=== PATIENT | female | born 1955 | race Caucasian/White ===

== ENCOUNTER 2017-02-01 18:59 | Emergency (ER) | payer OTHER ==
[~2017-02-01] VITALS: Ht 165.1 cm; Wt 40.8 kg
[~2017-02-01 18:59] MED LIST: ATIVAN0.5 MG ORAL; ATIVAN0.5 MG PO; ATIVAN1 MG ORAL; BENTYL10 MG PO; NORCO 5-325 TA1 EACH ORAL; OMEPRAZOLE40 M1 ORAL; PROTONIX40 MG PO; RANITIDINE HCL150 MG ORAL; TAGAMET400 MG ORAL; ZOFRAN ODT4 MG ORAL; ZOFRAN4 M3 ORAL
--- NOTE | 2017-02-01 19:42 | Emergency Room Report ---
History of Present Illness General Chief Complaint: Abdominal Pain Source: Patient Present Illness HPI Patient present with complaints of epigastric pain diffuse bilateral lower abdominal pain Patient reports multiple episodes of vomiting along with diarrhea she feels that she has lost a significant amount of weight over the past 2 months symptoms worsening over the past 2-3 days Pain is epigastric she states that it does not feel like her gastritis Lower abdomen is cramping Denies any recent travel denies any change in medications Allergies: Coded Allergies: PROCHLORPERAZINE EDISYLATE (Verified Allergy, Intermediate, Hives, 01/08/13 ) PROCHLORPERAZINE MALEATE (Verified Allergy, Intermediate, Hives, 01/08/13) PROCHLORPERAZINE (Unverified Allergy, Unknown, 11/04/14) CAFFEINE (Unverified Adverse Reaction, Intermediate, 04/19/14) TACHYCARDIA, PALPITATIONS OMEPRAZOLE (Unverified Adverse Reaction, Intermediate, HEADACHE, 02/01/17) ONDANSETRON (Unverified Adverse Reaction, Intermediate, HEADACHE, 02/01/17) NEUROMUSCULAR BLOCKERS, STEROIDAL (Unverified Adverse Reaction, Unknown, TACHYCARDIA AND PALPITATIONS, 02/01/17) Uncoded Allergies: STEROID (Adverse Reaction, Severe, TACHYCARDIA AND PALPITATIONS, 02/01/17) TACHYCARDIA, PALPITATIONS Patient History Past Medical History: see triage record Pertinent Family History: none Now: No Reviewed Nursing Documentation: PMH: Agreed, PSxH: Agreed Nursing Documentation-PMH Hx Cardiac Problems: No Hx Hypertension: No Hx Pacemaker: No Hx Asthma: No Hx COPD: No Hx Diabetes: No Hx Cancer: No Hx Dialysis: No Hx Neurological Problems: Yes - spinal stenosis,scoliosis Hx Cerebrovascular Accident: No Hx Seizures: No Review of Systems All Other Systems: negative except mentioned in HPI Physical Exam Vital Signs Date Time Temp Pulse Resp B/P Pulse Ox O2 Delivery O2 Flow Rate FiO2 02/01/17 19:13 98.1 88 16 116/60 98 Room Air Sp02 EP Interpretation: reviewed, normal General Appearance: cachetic Head: normocephalic, atraumatic Eyes: bilateral eye PERRL, bilateral eye EOMI ENT: hearing grossly normal, normal pharynx, TMs + canals normal, uvula midline , dry mucus membranes Neck: full range of motion, supple, no meningismus, no bony tend Respiratory: lungs clear, normal breath sounds, no rhonchi, no respiratory distress, no retraction, no accessory muscle use Cardiovascular #1: normal peripheral pulses, regular rate, rhythm, no edema, no gallop, no JVD, no murmur Gastrointestinal: normal bowel sounds, soft, no mass, no organomegaly, non- distended, no guarding, no hernia, no pulsatile mass, no rebound, tenderness - Epigastric bilateral lower abdomen no obvious rebound however Genitourinary: no CVA tenderness Musculoskeletal: normal inspection Neurologic: oriented x3, responsive, senior investment manager III-XII nml as tested, motor strength/ tone normal, sensory intact Psychiatric: mood/affect normal Skin: normal color, no rash, warm/dry, palpation normal Lymphatic: normal inspection, no adenopathy Medical Decision Making Diagnostic Impression: Primary Impression: Abdominal pain Additional Impression: Gastritis ER Course With the history exam and presentation, multiple differentials considered, including but not limited to appendicitis, gastritis, cholecystitis, diverticulitis Patient's blood work shows mild dehydration CT imaging is somewhat benign no obvious acute pathology Patient however continues to complain of discomfort nauseated as well With his significant weight loss and deterioration patient was at requested for admission secondary to insurance purposes patient was transferred Labs Test 02/01/17 19:43 White Blood Count 9.1 K/UL (4.8-10.8) Red Blood Count 3.34 M/UL (4.20-5.40) Hemoglobin 12.4 G/DL (12.0-16.0) Hematocrit 35.0 % (37.0-47.0) Mean Corpuscular Volume 105 FL (80-99) Mean Corpuscular Hemoglobin 37.2 PG (27.0-31.0) Mean Corpuscular Hemoglobin Concent 35.5 G/DL (32.0-36.0) Red Cell Distribution Width 11.9 % (11.6-14.8) Platelet Count 190 K/UL (150-450) Mean Platelet Volume 7.5 FL (6.5-10.1) Neutrophils (%) (Auto) 58.1 % (45.0-75.0) Lymphocytes (%) (Auto) 31.3 % (20.0-45.0) Monocytes (%) (Auto) 8.7 % (1.0-10.0) Eosinophils (%) (Auto) 1.1 % (0.0-3.0) Basophils (%) (Auto) 0.8 % (0.0-2.0) Urine Color Pale yellow Urine Appearance Clear Urine pH 5 (4.5-8.0) Urine Specific [place] 1.020 (1.005-1.035) Urine Protein Negative (NEGATIVE) Urine Glucose (UA) Negative (NEGATIVE) Urine Ketones Negative (NEGATIVE) Urine Occult Blood Negative (NEGATIVE) Urine Nitrite Negative (NEGATIVE) Urine Bilirubin Negative (NEGATIVE) Urine Urobilinogen 1 MG/DL (0.0-1.0) Urine Leukocyte Esterase 1+ (NEGATIVE) Urine RBC 0-2 /HPF (0 - 2) Urine WBC 2-4 /HPF (0 - 2) Urine Squamous Epithelial Cells Few /LPF (NONE/OCC) Urine Amorphous Sediment Few /LPF (NONE) Urine Bacteria Few /HPF (NONE) Sodium Level 143 mEQ/L (135-145) Potassium Level 4.6 mEQ/L (3.4-4.9) Chloride Level 105 mEQ/L (98-107) Carbon Dioxide Level 27 mEQ/L (20-30) Anion Gap 11 (5-15) Blood Urea Nitrogen 20 mg/dL (7-23) Creatinine 0.9 mg/dL (0.5-0.9) Estimat Glomerular Filtration Rate > 60 mL/min (>60) Glucose Level 95 mg/dL (74-106) Calcium Level 9.3 mg/dL (8.6-10.2) Total Bilirubin 0.2 mg/dL (0.0-1.2) Aspartate Amino Transf (AST/SGOT) 22 U/L (5-40) Alanine Aminotransferase (ALT/SGPT) 14 U/L (3-33) Alkaline Phosphatase 69 U/L (35-104) Total Creatine Kinase 142 U/L (26-140) Creatine Kinase MB 2.8 ng/mL (< 3.8) Creatine Kinase MB Relative Index 1.9 Troponin I < 0.30 ng/mL (<=0.30) Total Protein 6.3 g/dL (6.6-8.7) Albumin 4.4 g/dL (3.5-5.2) Globulin 1.9 g/dL Albumin/Globulin Ratio 2.3 (1.0-2.7) Lipase 13 U/L (< 60) Rhythm Strip Diag. Results EP Interpretation: yes Rate: 76 Rhythm: NSR, no PVC's, no ectopy Chest X-Ray Diagnostic Results Chest X-Ray Diagnostic Results : Chest X-Ray Ordered: Yes # of Views/Limited/Complete: 1 View Indication: Chest Pain EP Interpretation: Yes Interpretation: no consolidation, no effusion, no pneumothorax Impression: No acute disease Interpreting ER Provider: Benita Lopez, DO CT/MRI/US Diagnostic Results CT/MRI/US Diagnostic Results : Impression CT abdomen pelvisIMPRESSION: No evidence of acute abdominopelvic disease, with limitation as described. Subtle but potentially significant abnormalities the gastrointestinal tract may be missed. Repeat CT scan with full oral and IV contrast preparation recommended for more complete evaluation, as clinically indicated Probable small cyst left hepatic lobe Nonspecific low-attenuation in uterus. Pathology not excludable. Consider pelvic ultrasound for further evaluation as clinically indicated. This finding not described in preliminary report, minor discrepancy due to questionable nature finding. Degenerative spondylosis Last Vital Signs Date Time Temp Pulse Resp B/P Pulse Ox O2 Delivery O2 Flow Rate FiO2 02/01/17 19:13 98.1 88 16 116/60 98 Room Air Status: improved Disposition: XFER [facility] Condition: Serious BENITA LOPEZ D.O. Feb 01, 2017 19:42
[2017-02-01] MEDS ORDERED: Morphine Sulfate 4mg/ml Inj IVP ONE (19:45)
[2017-02-01] MEDS ORDERED: Famotidine 20 MG/ 2ML VIAL IVP ONE (19:45)
[2017-02-01 19:59] LABS: BASOPHILS % (AUTO) 0.8 % (0.0-2.0); EOSINOPHILS % (AUTO) 1.1 % (0.0-3.0); LYMPHOCYTES % (AUTO) 31.3 % (20.0-45.0); MEAN CORPUSCULAR HEMOGLOBIN 37.2 PG (27.0-31.0); MEAN CORPUSCULAR HGB CONC 35.5 G/DL (32.0-36.0); MEAN CORPUSCULAR VOLUME 105 FL (80-99); MEAN PLATELET VOLUME 7.5 FL (6.5-10.1); MONOCYTES % (AUTO) 8.7 % (1.0-10.0); NEUTROPHILS % (AUTO) 58.1 % (45.0-75.0); PLATELET COUNT 190 K/UL (150-450); RED BLOOD COUNT 3.34 M/UL (4.20-5.40); RED CELL DISTRIBUTION WIDTH 11.9 % (11.6-14.8); WHITE BLOOD COUNT 9.1 K/UL (4.8-10.8)
[2017-02-01] MEDS ORDERED: LOMOTIL TABLET1 EACH ORAL (20:02)
[2017-02-01] MEDS ORDERED: LORAZEPAM1 MG ORAL (20:05)
[2017-02-01 20:07] LABS: APPEARANCE,URINE CLEAR; KETONES,URINE NEGATIVE (NEGATIVE); LEUKOCYTE ESTERASE ,URINE 1+ (NEGATIVE); NITRITE,URINE NEGATIVE (NEGATIVE); PH,URINE 5 (4.5-8.0); PROTEIN,URINE NEGATIVE (NEGATIVE); UROBILINOGEN,URINE 1 MG/DL (0.0-1.0)
[2017-02-01 20:18] LABS: TROPONIN I < 0.30 ng/mL (<=0.30)
[2017-02-01 20:19] LABS: BACTERIA,URINE FEW /HPF; RBC,URINE 0-2 /HPF (0 - 2); SQUAMOUS EPITHELIAL CELL,UR FEW /LPF (NONE/OCC)
[2017-02-01 20:20] LABS: ALANINE AMINOTRANSFERASE 14 U/L (3-33); ALBUMIN/GLOBULIN RATIO 2.3 (1.0-2.7); AMORPHOUS SEDIMENT,UR FEW /LPF; ANION GAP 11 (5-15); ASPARTATE AMINO TRANSFERASE 22 U/L (5-40); CALCIUM 9.3 mg/dL (8.6-10.2); CARBON DIOXIDE 27 mEQ/L (20-30); CHLORIDE 105 mEQ/L (98-107); CREATININE 0.9 mg/dL (0.5-0.9); GLOMERULAR FILTRATION RATE > 60 mL/min (>60); HEMOLYSIS 37; LIPASE 13 U/L (< 60); POTASSIUM 4.6 mEQ/L (3.4-4.9); SODIUM 143 mEQ/L (135-145); TOTAL PROTEIN 6.3 g/dL (6.6-8.7)
[2017-02-01 20:30] LABS: CKMB 2.8 ng/mL (< 3.8)
[2017-02-01 21:20] VITALS: BP_SYST 120; BP_DIAS 80; BP_DIAS 88
--- NOTE | 2017-02-02 08:57 | Diagnostic Imaging Report ---
Indications: Abdominal pain, nausea and vomiting Technique: Continuous helical CT imaging of the abdomen and pelvis was performed with automatic exposure control following administration of nonionic IV contrast only, on a Siemens sensation [address] scanner. Axial, coronal, sagittal images were reconstructed at 5 mm slice thickness. No oral contrast was administered per requesting physician's order, despite no contraindications listed in either submitted clinical data or tech note.. CTDI volume(s): 14 mGy Total DLP: 613 mGy-cm Findings: Comparison: None Paucity of body fat decreases inherent soft tissue contrast, limiting evaluation. Lack of oral contrast limits evaluation of gastrointestinal tract, nondilated throughout. Appendix not definitely identified.. No obvious mural thickening, adjacent stranding, extraluminal gas or fluid collections identified. 4 mm circumscribed low-attenuation focus in hepatic segment 3. Mild distention of bilateral extrarenal pelves. No obvious stone or mass identified. Uterus diffusely decreased in attenuation centrally. Gallbladder, pancreas, spleen, adrenal glands, unopacified ureters and urinary bladder, bilateral adnexal regions, vascular structures, retroperitoneum, mesentery, remainder visualized abdominopelvic anatomy unremarkable. Lung bases and adjacent pleural surfaces clear. 2 level disc space narrowing with marginal osteophyte formation in lumbar spine. IMPRESSION: No evidence of acute abdominopelvic disease, with limitation as described. Subtle but potentially significant abnormalities the gastrointestinal tract may be missed. Repeat CT scan with full oral and IV contrast preparation recommended for more complete evaluation, as clinically indicated Probable small cyst left hepatic lobe Nonspecific low-attenuation in uterus. Pathology not excludable. Consider pelvic ultrasound for further evaluation as clinically indicated. This finding not described in preliminary report, minor discrepancy due to questionable nature finding. Degenerative spondylosis This otherwise correlates with Dr. Rogers's preliminary report.
--- NOTE | 2017-02-02 09:37 | Diagnostic Imaging Report ---
Indications: Chest pain Technique: Portable AP chest Findings: Comparison: 10/30/2014 Lungs remain symmetrically hyperinflated with bilateral apical, unchanged. Lungs remain otherwise clear. Heart size and pulmonary vasculature remain within normal limits. No pleural abnormality. Linear densities, suggestion of small pleural-based nodular densities IMPRESSION: No evidence of acute cardio pulmonary disease, unchanged COPD, stable
--- NOTE | 2017-02-02 15:18 | Cardiology Report ---
APPROVED REPORT EKG Measurement Heart [id number] Normal sinus rhythm Normal ECG
== END 2017-02-01 21:50 | disposition short-term general hospital (02) ==
LOC: EMR 19:48
DX: K29.70 Gastritis, unspecified, without bleeding (principal); E86.0 Dehydration; J44.9 Chronic obstructive pulmonary disease, unspecified; Z88.6 Allergy status to analgesic agent; Z88.8 Allergy status to other drugs, medicaments and biological substances; M41.9 Scoliosis, unspecified; M48.00 Spinal stenosis, site unspecified
CPT/HCPCS: 36415; 71010; 74177; 80053; 81003; 82550; 82553; 83690; 84484; 85025; 93005; 96374; 96375; 99285; J2270; J7040; Q9967; S0028